=== PATIENT | female | born 1945 | race Caucasian/White ===

== ENCOUNTER → 2020-06-22 17:31 | Outpatient (REF) | payer OTHER, SELFPAY ==
[2020-06-22 21:09] LABS: HCT 41.4 % (36.0-46.0); HGB 12.8 g/dL (11.2-15.7); MCH 29.8 pg (27.0-33.0); MCHC 30.9 % (32.0-36.0); MCV 96.3 fL (80-95); MPV 10.7 fL (8.0-11.0); Platelet Count 292 10^3/uL (130-400); RDW 15.3 % (11.7-14.6); RDW-SD 54.4 fL; WBC 9.21 10^3/uL (4.4-10.8)
[2020-06-22 21:14] LABS: Bilirubin Small (Negative); Blood Negative (Negative); Clarity Clear (Clear); Glucose 100 mg/dL (Negative); Ketones Trace mg/dL (Negative); Leukocyte Esterase Trace (Negative); Nitrite Negative (Negative); Specific Gravity 1.025 (1.005-1.025); pH 5.5 (5-8)
[2020-06-22 21:19] LABS: Bacteria Moderate HPF (Negative); Epithelial Cells Moderate HPF (Negative); RBC 0-2 HPF (0-2)
[2020-06-22 21:20] LABS: C & S Indicated? No/Sq. Contamination; Casts 0-2 Hyaline LPF (Negative); Crystals Mod Calcium Oxalate HPF (Negative); Mucus Trace (Negative)
[2020-06-22 21:59] LABS: ALT 16 U/L (14-59); AST 20 U/L (15-37); Albumin 3.2 g/dL (3.4-5.0); Alkaline Phosphatase 101 U/L (46-116); Anion Gap 9.3 mmol/L (3-11); BUN 18 mg/dL (7-18); CO2 29.7 mmol/L (21.0-32.0); Calcium 8.8 mg/dL (8.5-10.1); Chloride 100 mmol/L (98-107); Estimated GFR 43.91 (mL/min/1.73m2); Glucose 86 mg/dL (74-106); Potassium 4.5 mmol/L (3.5-5.1); Sodium 139 mmol/L (136-145); Total Protein 6.9 g/dL (6.4-8.2)
== END ==
LOC: NCHCN 17:31
PROVIDERS: Visit Provider Nurse Practitioner Family
DX: R30.9 Painful micturition, unspecified (principal); R35.0 Frequency of micturition
CPT/HCPCS: 80053; 85027; 81003; 81015

== ENCOUNTER → 2020-06-28 15:43 | Outpatient (CLI) | payer OTHER, SELFPAY ==
--- NOTE | 2020-06-28 15:15 | DI.RAD_ITS ---
EXAM: XR KNEE RT 3V AP,LAT,JD CLINICAL HISTORY: knee pain. TECHNIQUE: 2D digital imaging was performed. COMPARISON: No exams were available for comparison FINDINGS: There are postsurgical changes of a right total knee replacement. No lucencies are seen in or about the orthopedic hardware to suggest loosening. No acute fracture or dislocation is present. There is a joint effusion present there is soft tissue swelling around the knee. The patient has a left tota l knee replacement which is incompletely imaged. IMPRESSION: 1. Right TKR. 2. Right joint effusion and soft tissue swelling about the right knee. DATA REPOSITORY: RADIATION DOSE DELIVERED:
[2020-06-28 17:03] LABS: Clarity Cloudy
[2020-06-28 17:04] LABS: Nucleated Cells 724 uL (0)
[2020-06-28 17:20] LABS: Mononuclear Cells 64 %; Polynuclear Cells 36 %
== END ==
PROVIDERS: Visit Provider Student in an Organized Health Care Education/Training Program
DX: Z96.651 Presence of right artificial knee joint (principal); M25.461 Effusion, right knee; M25.561 Pain in right knee
CPT/HCPCS: 73562; 87070; 87205; 89051

== ENCOUNTER 2020-12-01 04:28 | Emergency (ER) | payer OTHER, SELFPAY ==
--- NOTE | 2020-12-01 04:30 | DI.CT_ITS ---
Exam(s) CT HEAD WO EXAM: CT HEAD WO CLINICAL HISTORY: fall, pain, dizzy. TECHNIQUE: Imaging Protocol: Axial computed tomography images with coronal and sagittal reformatted images were created and reviewed COMPARISON: No exams were available for comparison FINDINGS: There are no skull fractures nor fluid in the visualized paranasal sinuses. There is no evidence of intracranial hemorrhage, mass effect, or shift of midline structures. There are no extra-axial fluid collections. The ventricles are not enlarged or shifted and there is no blo od within the ventricular system nor within the basal cisterns. Calcification is noted in the vertebral and basilar arteries at the skull base. Also within the intr acavernous internal carotid arteries.. There is some mild periventricular hypodensity consistent wit h chronic small vessel disease. No territorial infarction evident IMPRESSION: No acute intracranial findings on this noninfused CT scan of the brain. Chronic small-vessel white matter ischemic changes noted RADIATION DOSE DELIVERED: 601.87mGy.cm Total DLP DATA REPOSITORY: All CT scans at this facility are submitted to the National Radiology Data Registry (NRDR) Dose Index Registry (DIR) with the [employer] (ACR). RADIATION OPTIMIZATION: All CT scans at this facility use at least one of these dose optimization te chniques: automated exposure control; mA and/or kV adjustment per patient size (includes targeted exa ms where dose is matched to clinical indication); or iterative reconstruction.
--- NOTE | 2020-12-01 04:30 | RT.EKG_ITS ---
APPROVED REPORT Exam: Resting ECG Reason for Exam: lightheaded Patient Location: E HR:59 bpm ECG Measurements Heart Rate 59 AXIS ME 186 P 37 QRSd 89 QRS 4 QT 432 T 35 QTc 429 Conclusion Sinus bradycardia...rate< 60
[2020-12-01 04:33] VITALS: BP 157/79; PULSE 82; RESP 16; TEMP 36.6; O2SAT 99
--- NOTE | 2020-12-01 04:44 | W.ED.GENAD ---
Discharge Plan Disposition Patient Disposition: HOME Condition: Stable Discharge Details Clinical Impression: Light-headed, Pain in rib, Left flank pain Primary Care Provider: Unknown,Unknown ED Provider: Ata Moya Home Meds and New Rx's Prescriptions: New clonazepam 2 mg tablet 2 mg PO QHS Qty: 12 RF: 0 Continued cholecalciferol (vitamin D3) 125 mcg (5,000 unit) capsule 125 mcg PO DAILY RF: 0 ropinirole 3 mg tablet 3 mg PO HS RF: 0 potassium chloride 10 mEq capsule, extended release 10 meq PO DAILY RF: 0 pantoprazole 40 mg tablet,delayed release (DR/EC) 40 mg PO BID RF: 0 cyanocobalamin (vitamin B-12) 1,000 mcg/mL solution 100 mcg subcut QMONTH RF: 0 levothyroxine 137 mcg capsule 150 mcg PO DAILY RF: 0 clonazepam 1 mg tablet 2 mg PO QHS RF: 0 gabapentin 100 mg capsule 800 mg PO HS RF: 0 trazodone 100 mg tablet 200 mg PO QHS RF: 0 amlodipine 5 mg Tablet 5 mg PO HS RF: 0 acetaminophen 500 mg Tablet 500 mg PO TID PRNRF: 0 [id number] 1 mg Tablet 1 tab PO DAILY RF: 0 ondansetron 4 mg Tablet,Disintegrating 4 mg PO TID PRNRF: 0 Discharge Instructions Instructions: Chest Wall Pain (ED) Additional Instructions: your cat scans did not show any concerning findings at this time and your labs showed no significant concerning findings if you feel more ill, have severe worsening pain or difficulty breathing return to the emergency department Medical Decision Making 75 yo female with hx of htn, jose, prior bariatric surgery, DM2, cad, gerd, hld, ckd, who is here visiting from [place] per patient comes in with feeling lightheaded and nausea since last night. She states she woke up on the bathroom floor this morning and is not sure if she had lost consciousness. She states since she has had a mild headache along with left flank pain. Denies chest pain, vomit, abdomen pain, fevers, rashes, dyspnea. she has no focal neuro deficits on exam, ambulating normally into the room and actually drove herself here. She has an NIH of 0 on my exam so doubt cva. Symptoms could be due to arrythmia, anemia, electrolyte abnormality, less likely nstemi given no chest pain or pressure. no evidence of dvt on exam and no pleuritic chest pain, tachycardia or hypoxia so doubt PE. Will obtain ct head given head pain s/p possible fall. She has left cva tenderness and lower left lateral back pain, concern for possible kidney stone vs traumatic injury. She does note left laterall rib tenderness over 4-5 ribs in mid axillary line, conern for rib fracture, will obtain ct to further evaluate for these entities. She has no midline c spine tenderness with full range of motion so doubt fracture and has no traumatic external injuries to the neck or head so do not feel ct c spine indicated pt remains stable in sinus rhythm. Has been in sinus rhythm despite feeling lightheaded so doubt arrythmia. She has no acute findings on imaging and labs unremarkable. She is sleeping on reassessment and awakens to voice. She has no new complaints, still mild tenderness to lateral 4-5 ribs and left lower back, no midline pain and no saddle anesthesia so doubt cauda equina and no findings to suggest spinal epidural abscess on history. I suspect musculsoeketal cause for her pain including rib contusion and back strain. She does take clonazepam 2mg at night for sleep and has been for a while unfortunately ran out while here two days ago. She leaves [place] to go home in 10 days so will provide prescription for this until she can see pcp in [place]. She is stable for d/c and return precautions given Differential Diagnosis Differential Diagnosis: syncope, uti, kidney stone, anemia, electrolyte abnormality Medical Records Medical records reviewed: Yes I reviewed the patient's medical records. Imaging Data Radiologic Study: Attestation: I personally reviewed and interpreted this imaging study as follows: Imaging: CT Scan Radiologist's impression: no acute findings on head ct Radiologic Study #2: Attestation: I personally reviewed and interpreted this imaging study as follows: Imaging: CT Scan Radiologist's impression: no acute findings on ct chest/abd/pelvis Lab Data Lab results reviewed: Yes I reviewed the patient's lab results. ECG Data Attestation: I personally reviewed and interpreted this ECG (s) as follows: Prior ECG tracings: not available for review Interpretation: sinus bradycardia, rate of 59, pr 186, qtc 429, no acute ischemic findings HPI General Mode of arrival: ambulatory. Date/Time Provider Initiated Documentation: 12/01/20 04:29. Limitations to Documentation: no limitations. Information obtained by: patient. History of Present Illness 75 year old F presents to the emergency department with the chief complaint of nausea, described as moderate, Patient started experiencing this hour(s) (10) and it has been constant. No relieving factors improve symptom(s), No exacerbating factors reported . Patient notes other (lightheaded). Patient did receive the following treatments prior to arrival, none Related Data Home Medications Medication Instructions Recorded Confirmed cholecalciferol (vitamin D3) 125 125 mcg PO DAILY 06/29/20 12/01/20 mcg (5,000 unit) capsule clonazepam 1 mg tablet 2 mg PO QHS 06/29/20 12/01/20 cyanocobalamin (vitamin B-12) 100 mcg SUBCUT QMONTH 06/29/20 12/01/20 1,000 mcg/mL injection solution gabapentin 100 mg capsule 800 mg PO HS cap 06/29/20 12/01/20 levothyroxine 137 mcg capsule 150 mcg PO DAILY 06/29/20 12/01/20 pantoprazole 40 mg tablet,delayed 40 mg PO BID 06/29/20 12/01/20 release potassium chloride 10 mEq 10 meq PO DAILY 06/29/20 12/01/20 capsule,extended release ropinirole 3 mg tablet 3 mg PO HS 06/29/20 12/01/20 trazodone 100 mg tablet 200 mg PO QHS tab 07/29/20 12/01/20 acetaminophen 500 mg PO TID PRN 12/01/20 12/01/20 amlodipine 5 mg PO HS 12/01/20 12/01/20 clonazepam 2 mg PO QHS #12 tab 12/01/20 ondansetron 4 mg PO TID PRN 12/01/20 12/01/20 [id number] 1 tab PO DAILY 12/01/20 12/01/20 Previous Rx's Medication Instructions Recorded clonazepam 2 mg PO QHS #12 tab 12/01/20 Allergies Allergy/AdvReac Type Severity Reaction Status Date / Time NSAIDS (Non-Steroidal Allergy Verified 12/01/20 04:38 Anti-Inflamma General Stated Complaint: GenMedical MUNA: 3 Review of Systems All systems reviewed & are unremarkable except as noted in HPI and below Constitutional Constitutional: Denies chills and Denies fever(s) Cardiovascular Cardiovascular: Denies chest pain and Denies dyspnea Respiratory Respiratory: Denies cough and Denies dyspnea Gastrointestinal Gastrointestinal: Denies abdominal pain and Denies vomiting Genitourinary Genitourinary: Denies dysuria [facility] Medical History (Updated 12/01/20 @ 05:58 by Ata Moya MD) Aseptic necrosis of bone Coronary atherosclerosis due to lipid rich plaque DM w/o complication type II GERD (gastroesophageal reflux disease) History of colon polyps Hyperlipidemia Hypertension Hypertensive heart disease Hypokalemia Lumbosacral spondylosis without myelopathy Medullary carcinoma of thyroid Mixed anxiety depressive disorder Osteopenia Parathyroid adenoma Polymyalgia Postoperative hypothyroidism Renal insufficiency Restless leg syndrome Vitamin D deficiency Surgical History (Updated 06/29/20 @ 08:38 by Donell Ramirez RN) History of bariatric surgery History of total right knee replacement Social History Smoking risk assessment performed?: No Exam Const General: no acute distress Orientation: alert HENMT Head: normal to inspection Ears: external ears normal General nose exam: external nose normal Mouth: moist mucous membranes Eyes General: appearance normal, both eyes and all related structures Neck Neck: normal visual inspection Resp Effort & Inspection: normal respiratory effort and able to speak in complete sentences Cardio Rate: regular rate GI Palpation: soft, not rigid and nontender Skin General skin exam: no rashes or lesions noted Neuro General: patient alert and patient oriented x3 Extrem General: normal to inspection Psych Mental Status: mental status grossly normal Course Vital Signs Vital signs: Vital Signs Temperature 36.6 C 12/01/20 04:33 Pulse 82 12/01/20 04:33 Respiratory Rate 16 12/01/20 04:33 Blood Pressure 157/79 H 12/01/20 04:33 Pulse Oximetry 99 12/01/20 04:33 Temperature 36.6 C 12/01/20 04:33 Temperature Source Temporal Artery Scan 12/01/20 04:33 Pulse 82 12/01/20 04:33 Respiratory Rate 16 12/01/20 04:33 Respiratory Effort 12/01/20 04:35 Respiratory Depth Normal 12/01/20 04:35 Respiratory Pattern Normal 12/01/20 04:35 Blood Pressure 157/79 H 12/01/20 04:33 Blood Pressure Position Supine 12/01/20 04:33 Pulse Oximetry 99 12/01/20 04:33 Oxygen Delivery Method Room Air 12/01/20 04:33 Oxygen Flow Rate 0 12/01/20 04:33 Pain Level 0 12/01/20 04:33
[2020-12-01 04:50] LABS: Abs Immature Grans 0.02 10^3/uL (0.0-0.06); Absolute Basophil Count 0.02 10^3/uL (0.0-0.2); Absolute Eosinophil Count 0.03 10^3/uL (0.0-0.7); Absolute Lymphocyte Count 1.62 10^3/uL (1.2-3.4); Absolute Monocyte Count 0.38 10^3/uL (0.1-0.8); Basophils % 0.3; Eosinophils % 0.4; HCT 39.7 % (36.0-46.0); HGB 12.9 g/dL (11.2-15.7); Immature Grans % 0.3; Lymphocytes % 20.8; MCHC 32.5 % (32.0-36.0); MCV 92.3 fL (80-95); MPV 10.1 fL (8.0-11.0); Monocytes % 4.9; Neutrophils % 73.3; Nucleated RBC 0 %; Platelet Count 226 10^3/uL (130-400); RDW 12.1 % (11.7-14.6); RDW-SD 41.2 fL; WBC 7.77 10^3/uL (4.4-10.8)
[2020-12-01] MEDS: Normal Saline 1,000 ML 1000 ML IV (04:55)
[2020-12-01] MEDS: Ondansetron 4 MG/2 ML VIAL IVP (04:55)
[2020-12-01] MEDS: Acetaminophen 500 MG TAB 1000 MG PO (04:55)
[2020-12-01 04:57] LABS: Bilirubin Negative (Negative); Blood Negative (Negative); Clarity Clear (Clear); Glucose Negative (Negative); Ketones Negative (Negative); Leukocyte Esterase Trace (Negative); Nitrite Negative (Negative); pH 7.5 (5-8)
--- NOTE | 2020-12-01 05:02 | DI.CT_ITS ---
Exam(s) CT CHEST/ABD/PEL WO EXAM: CT CHEST/ABD/PEL WO CLINICAL HISTORY: left sided rib pain. TECHNIQUE: Imaging Protocol: Axial computed tomography images with coronal and sagittal reformatted images were created and reviewed CONTRAST MATERIAL: Intravenous: none Oral: None COMPARISON: No exams were available for comparison FINDINGS: CHEST: LUNGS: There are no infiltrates nor pleural effusions. No incidental significant nodules. No lung c ontusion. No pneumothorax. MEDIASTINUM: No mediastinal hematoma evident. There is no obvious hilar nor mediastinal adenopathy. No axillary adenopathy. Visualized thyroid unremarkable.Aberrant right subclavian artery noted CARDIAC: Heart size is normal. There is no pericardial effusion.Caliber of the thoracic aorta is wit hin normal limits. Evident right subclavian arteries noted. OSSEOUS: Right shoulder hardware. No acute fractures of the rib cages and scapulae. There is a yrn cute compression fracture of T12 noted. Incidentally noted is an intraosseous hemangioma in a mid-lo wer thoracic vertebral body.. Nonacute appearing compression fracture of L3 noted. ABDOMEN: There is no ascites. Evidence of gastric surgery. LIVER: No obvious hepatic laceration. There is a well-defined round hypodensity in the right hepatic lobe which measures 9 x 9 millimeters. This probably benign cyst. GALLBLADDER/BILIARY: The gallbladder is surgically absent. CBD is not dilated. PANCREAS: No evidence of obvious pancreatic mass nor dilatation of the pancreatic duct. SPLEEN: Spleen size is normal. No splenic lacerations seen. No perisplenic fluid. ADRENALS: Mild thickening of the left adrenal gland. Right adrenal gland unremarkable. KIDNEYS: No significant renal trauma. Left kidney unremarkable. 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 Jus t below this level there is a 1.4 x 1.5 cm hypodensity which is difficult to assess without IV contra st. Possibly represents a cyst but should be further verified with-studied with ultrasound. There a re bilateral tiny renal calculi which are nonobstructive. There are no calculi in the urinary bladde r. There is a tiny calculus intimately associated with the lower left ureter measuring 3 millimeters . Possibly intraureteral.. No cysts evident. ABDOMINAL AORTA: Abdominal aorta is not enlarged. LYMPH NODES: There is no retroperitoneal nor para-aortic adenopathy. ABDOMINAL WALL/GI: No evidence of signature anterior abdominal wall hernia. No bowel obstruction. PELVIS: LYMPH NODES: There is no intrapelvic nor inguinal adenopathy. GI: No evidence of appendicitis.There is sigmoid diverticulosis. No evidence of obvious acute divert iculitis. URINARY BLADDER: No calculi nor obvious masses evident REPRODUCTIVE: Uterus is atrophic or surgically absent. No abnormal adnexal masses. OSSEOUS: No acute fractures. IMPRESSION: 1. No acute intrathoracic findings evident on this noninfused study. No rib fractures. Incidentally noted is a aberrant right subclavian artery. 2. No obvious significant trauma sequelae in the abdomen pelvis, realizing the limitations of a nonin fused study. There is no ascites. 3. Tiny nonobstructive calculi in both kidneys. Right renal findings as above. Recommend ultrasound . Possible small calculus lower left ureter which does not appear obstructive. Previous cholecystectomy and hysterectomy. RADIATION DOSE DELIVERED: 1,100.83mGy.cm Total DLP DATA REPOSITORY: All CT scans at this facility are submitted to the National Radiology Data Registry (NRDR) Dose Index Registry (DIR) with the [employer] (ACR). RADIATION OPTIMIZATION: All CT scans at this facility use at least one of these dose optimization te chniques: automated exposure control; mA and/or kV adjustment per patient size (includes targeted exa ms where dose is matched to clinical indication); or iterative reconstruction.
[2020-12-01 05:05] LABS: ALT 18 U/L (14-59); AST 17 U/L (15-37); Albumin 3.4 g/dL (3.4-5.0); Alkaline Phosphatase 83 U/L (46-116); Anion Gap 9.4 mmol/L (3-11); BUN 16 mg/dL (7-18); Bilirubin, Total 0.6 mg/dL (0.2-1.0); CO2 28.6 mmol/L (21.0-32.0); CREATININE 0.9 mg/dL (0.55-1.02); Calcium 8.6 mg/dL (8.5-10.1); Chloride 104 mmol/L (98-107); Glucose 116 mg/dL (74-106); Magnesium 1.9 mg/dL (1.8-2.4); Potassium 3.5 mmol/L (3.5-5.1); Sodium 142 mmol/L (136-145); Total Protein 7.1 g/dL (6.4-8.2)
[2020-12-01 05:09] LABS: Bacteria Few HPF (Negative); C & S Indicated? Yes; Casts Negative LPF (Negative); Crystals Negative HPF (Negative); Epithelial Cells Few HPF (Negative); Mucus Negative (Negative); RBC 0-2 HPF (0-2); WBC 0-2 HPF (0-5)
[2020-12-01 05:11] LABS: Troponin I < 0.05 ng/mL (<0.06)
--- NOTE | 2020-12-01 05:29 | DI.VRAD_ITS ---
PROCEDURE INFORMATION: Exam: CT Head Without Contrast Exam date and time: 12/01/2020 4:44 AM Age: 75 years old Clinical indication: Injury or trauma; Injury date: 12/01/20; Injury details: Fall, pain, brief loc, dizzy TECHNIQUE: Imaging protocol: Computed tomography of the head without contrast. Radiation optimization: All CT scans at this facility use at least one of these dose optimization techniques: automated exposure control; mA and/or kV adjustment per patient size (includes targeted exams where dose is matched to clinical indication); or iterative reconstruction. COMPARISON: No relevant prior studies available. FINDINGS: Brain: Normal. No hemorrhage. Unremarkable white matter. No mass effect. Cerebral ventricles: No ventriculomegaly. Paranasal sinuses: Visualized sinuses are unremarkable. No fluid levels. Mastoid air cells: Visualized mastoid air cells are well aerated. Bones/joints: Unremarkable. No acute fracture. Soft tissues: Unremarkable. IMPRESSION: No acute intracranial abnormality. Dictated and Authenticated by: Ata Kelsey MD. Ordering:BASIA Berumen MD
--- NOTE | 2020-12-01 05:45 | DI.VRAD_ITS ---
PROCEDURE INFORMATION: Exam: CT Chest Without Contrast; Diagnostic Exam date and time: 12/01/2020 5:11 AM Age: 75 years old Clinical indication: Injury or trauma; Luq; Blunt trauma (contusions or hematomas); Injury date: 12/01/20; Injury details: Fall, left flank pain and R posterior rib pain TECHNIQUE: Imaging protocol: Diagnostic computed tomography of the chest without contrast. 3D rendering (Not supervised by radiologist): MIP and/or 3D reconstructed images were created by the technologist. Radiation optimization: All CT scans at this facility use at least one of these dose optimization techniques: automated exposure control; mA and/or kV adjustment per patient size (includes targeted exams where dose is matched to clinical indication); or iterative reconstruction. COMPARISON: No relevant prior studies available. FINDINGS: Lungs: Unremarkable. No consolidation. No masses. Pleural spaces: Unremarkable. No pneumothorax. No pleural effusion. Heart: Unremarkable. No cardiomegaly. No pericardial effusion. Aorta: Unremarkable. No aortic aneurysm. Lymph nodes: Unremarkable. No enlarged lymph nodes. Bones/joints: Unremarkable. No acute fracture. Soft tissues: Unremarkable. IMPRESSION: No acute findings. PROCEDURE INFORMATION: Exam: CT Abdomen And Pelvis Without Contrast Exam date and time: 12/01/2020 5:11 AM Age: 75 years old Clinical indication: Injury or trauma; Luq; Blunt trauma (contusions or hematomas); Injury date: 12/01/20; Injury details: Fall, left flank pain and R posterior rib pain TECHNIQUE: Imaging protocol: Computed tomography of the abdomen and pelvis without contrast. 3D rendering (Not supervised by radiologist): MIP and/or 3D reconstructed images were created by the technologist. COMPARISON: No relevant prior studies available. FINDINGS: Liver: Normal. No mass. Gallbladder and bile ducts: Status post cholecystectomy. Pancreas: Normal. No ductal dilation. Spleen: Normal. No splenomegaly. Adrenal glands: Normal. No mass. Kidneys and ureters: Normal. No hydronephrosis. Stomach and bowel: Status post gastrojejunostomy. Colonic diverticulosis. Appendix: No evidence of appendicitis. Intraperitoneal space: Unremarkable. No free air. No significant fluid collection. Vasculature: Unremarkable. No abdominal aortic aneurysm. Lymph nodes: Unremarkable. No enlarged lymph nodes. Urinary bladder: Unremarkable as visualized. Reproductive: Status post hysterectomy. Bones/joints: Unremarkable. No acute fracture. Soft tissues: Unremarkable. IMPRESSION: No acute finding. Dictated and Authenticated by: Ata Kelsey MD. Ordering:BASIA Berumen MD
[2020-12-01 06:18] VITALS: BP 137/64; PULSE 63; O2SAT 98
== END 2020-12-01 06:25 | disposition home or self-care (01) ==
PROVIDERS: Emergency Provider Emergency Medicine
DX: R42 Dizziness and giddiness (principal); R07.82 Intercostal pain; M54.5 Low back pain
CPT/HCPCS: 71250; 80053; 93005; 96361; 96374; 99285; 70450; 74176; 81003; 81015; 83735; 84484; 85025; 87086; 93010; J2405